=== PATIENT | male | born 1955 | race Caucasian/White ===

== ENCOUNTER 2016-09-04 06:27 | Day surgery (SDC) | payer OTHER ==
[~2016-09-04 06:27] MED LIST: ALBUTEROL1.25 MG/3 INH; AMIODARONE HCL100 M1 PO; BACLOFEN20 M1 PO; BROVANA15 MCG/22 INH; COUMADIN2.5 M1 PO; CPAP; CRANBERRY425 MG PO; FIBERCON625 M2 PO; KLOR-CON 1010 ME1 PO; METAMUCIL0.52 G1 PO; MIRALAX17 G2 PO; MUCINEX DM ER1 EAC1 PO; MULTIVITAMIN; ORAZINC220 M1 PO; OXYBUTYNIN CHLO10 M1 PO; SENNA LAXATIVE PO; SINGULAIR10 M1 PO; TOPROL XL50 M1 PO; ZYRTEC10 M7 PO
[2016-09-04 07:29] LABS: INR 1.2 INR (0.9-1.1); PROTHROMBIN TIME 13.7 SECONDS (9.0-13.6)
[2016-09-04 07:36] LABS: ANION GAP 11 mmol/L (0-20); BLOOD UREA NITROGEN 11 mg/dl (6-24); CALCIUM 8.9 mg/dl (8.5-10.5); CARBON DIOXIDE-VENOUS 25 mmol/L (22-32); CHLORIDE 98 mmol/l (96-110); CREATININE 0.41 mg/dl (0.60-1.30); GLUCOSE 101 mg/dL (70-110); SODIUM 130 mmol/L (135-145); eGFR VALUE FOR BLACK >90 mL/Min
[2016-09-04 07:38] LABS: POTASSIUM 4.3 mmol/L (3.7-5.1)
[2016-10-30] MEDS ORDERED: *CPAP (17:27)
[2016-10-30] MEDS ORDERED: SODIUM CHLOR1 GM/TAB PO (17:27)
[2016-10-30] MEDS ORDERED: SULFAMYLON60 GM TP (17:28)
[2016-10-30] MEDS ORDERED: FLONASE ALLERG9.9 ML (17:28)
[2016-10-30] MEDS ORDERED: MYRBETRIQ50 M1 PO (17:29)
[2016-10-30] MEDS ORDERED: VALIUM5 M1 PO (17:29)
[2016-10-30] MEDS ORDERED: PIPERACIL-TA3.375 G1 IV (17:30)
[2016-10-30] MEDS ORDERED: VANCOMYCIN HCL500 MG IV (17:31)
[2016-10-30] MEDS ORDERED: SALINE NASAL14.1 GM TP (17:32)
[2016-11-05] MEDS ORDERED: SULFAMYLON SOL250 M1 TP (14:09)
[2016-11-05] MEDS ORDERED: TYLENOL EXTRA500 M1 PO (14:14)
[2016-11-22] MEDS ORDERED: COUMADIN5 M2 PO (12:04)
== END 2016-09-04 11:25 ==
LOC: SHSB 06:27 → ENDOS 08:30
PROVIDERS: Anesthesiology
PROC: 0DBH8ZX Excision of Cecum, Via Natural or Artificial Opening Endoscopic, Diagnostic (ICD-10-PCS; principal; 2016-09-04)
PROC: 0DBP8ZX Excision of Rectum, Via Natural or Artificial Opening Endoscopic, Diagnostic (ICD-10-PCS; 2016-09-04)
DX: Z12.11 Encounter for screening for malignant neoplasm of colon (principal); D12.0 Benign neoplasm of cecum; K62.1 Rectal polyp; I10 Essential (primary) hypertension; J40 Bronchitis, not specified as acute or chronic; K21.9 Gastro-esophageal reflux disease without esophagitis; J30.2 Other seasonal allergic rhinitis; Z79.899 Other long term (current) drug therapy; Z88.2 Allergy status to sulfonamides; Z86.73 Personal history of transient ischemic attack (TIA), and cerebral infarction without residual deficits; Z80.0 Family history of malignant neoplasm of digestive organs; Z98.890 Other specified postprocedural states

== ENCOUNTER 2016-09-05 07:31 | Inpatient (IN) | payer OTHER ==
[2016-09-05 08:45] LABS: BASO % 0.3 % (0-2); EOS % 1.1 % (0-7); EOSINOPHIL ABSOLUTE COUNT 0.1 tho/cmm (0.0-0.7); HCT-HEMATOCRIT 36.5 % (36.0-53.5); HGB-HEMOGLOBIN 12.6 gm/dl (13.5-17.0); IMMATURE GRANULOCYTES ABSOLUTE 0.09 tho/cmm (0-0.03); LYMPH % 12.7 % (20-45); LYMPH ABSOLUTE COUNT 1.2 tho/cmm (0.8-4.5); MCH (MEAN CORPUSCULAR HGB) 28.4 pg (28.0-32.0); MCHC MEAN CORPUSCULAR HGB CONC 34.5 % (32.0-36.0); MCV (MEAN CELL VOLUME) 82.4 fl (82.0-96.0); MEAN PLATELET VOLUME 8.6 cmc (9.4-12.4); NEUTROPHIL ABSOLUTE COUNT 6.7 tho/cmm (1.6-8.0); NEUTROPHIL-AUTOMATED 6.7 tho/cmm (1.6-8.0); NEUTROPHILS % 73.9 % (40-80); PLATELET COUNT 288 tho/cmm (150-450); RED BLOOD COUNT 4.43 mil/cmm (4.40-5.70); RED CELL DISTRIBUTION WIDTH 15.6 % (12.4-16.4); WHITE BLOOD COUNT 9.1 tho/cmm (4.0-10.0)
[2016-09-05 08:46] LABS: ANION GAP 13 mmol/L (0-20); BLOOD UREA NITROGEN 8 mg/dl (6-24); CALCIUM 8.6 mg/dl (8.5-10.5); CARBON DIOXIDE-VENOUS 21 mmol/L (22-32); CHLORIDE 102 mmol/l (96-110); CREATININE 0.46 mg/dl (0.60-1.30); GLUCOSE 101 mg/dL (70-110); SODIUM 132 mmol/L (135-145); eGFR VALUE FOR BLACK >90 mL/Min
[2016-09-06 04:49] LABS: BASO % 0.2 % (0-2); EOS % 0.1 % (0-7); HCT-HEMATOCRIT 32.8 % (36.0-53.5); HGB-HEMOGLOBIN 11.2 gm/dl (13.5-17.0); IMMATURE GRANULOCYTES ABSOLUTE 0.06 tho/cmm (0-0.03); IMMATURE GRANULOCYTES PERCENT 0.4 % (0-0.3); LYMPH % 8.8 % (20-45); LYMPH ABSOLUTE COUNT 1.4 tho/cmm (0.8-4.5); MCH (MEAN CORPUSCULAR HGB) 28.6 pg (28.0-32.0); MCHC MEAN CORPUSCULAR HGB CONC 34.1 % (32.0-36.0); MCV (MEAN CELL VOLUME) 83.7 fl (82.0-96.0); MEAN PLATELET VOLUME 8.7 cmc (9.4-12.4); MONOCYTE ABSOLUTE COUNT 1.8 tho/cmm (0.0-1.2); NEUTROPHILS % 79.5 % (40-80); PLATELET COUNT 230 tho/cmm (150-450); RED BLOOD COUNT 3.92 mil/cmm (4.40-5.70); RED CELL DISTRIBUTION WIDTH 16.2 % (12.4-16.4)
[2016-09-06 04:58] LABS: ANION GAP 11 mmol/L (0-20); BLOOD UREA NITROGEN 4 mg/dl (6-24); CARBON DIOXIDE-VENOUS 25 mmol/L (22-32); CHLORIDE 102 mmol/l (96-110); CREATININE 0.46 mg/dl (0.60-1.30); GLUCOSE 142 mg/dL (70-110); POTASSIUM 3.5 mmol/L (3.7-5.1); SODIUM 134 mmol/L (135-145); WHITE BLOOD COUNT 16.4 tho/cmm (4.0-10.0); eGFR VALUE FOR BLACK >90 mL/Min
[2016-09-07 05:07] LABS: ANION GAP 11 mmol/L (0-20); BLOOD UREA NITROGEN 2 mg/dl (6-24); CALCIUM 8.3 mg/dl (8.5-10.5); CARBON DIOXIDE-VENOUS 26 mmol/L (22-32); CHLORIDE 101 mmol/l (96-110); CREATININE 0.41 mg/dl (0.60-1.30); GLUCOSE 127 mg/dL (70-110); POTASSIUM 4.1 mmol/L (3.7-5.1); SODIUM 134 mmol/L (135-145); eGFR VALUE FOR BLACK >90 mL/Min
[2016-09-07 05:12] LABS: BASO % 0.3 % (0-2); EOS % 1.1 % (0-7); EOSINOPHIL ABSOLUTE COUNT 0.1 tho/cmm (0.0-0.7); HCT-HEMATOCRIT 33.8 % (36.0-53.5); HGB-HEMOGLOBIN 11.5 gm/dl (13.5-17.0); IMMATURE GRANULOCYTES ABSOLUTE 0.03 tho/cmm (0-0.03); IMMATURE GRANULOCYTES PERCENT 0.3 % (0-0.3); LYMPH ABSOLUTE COUNT 1.4 tho/cmm (0.8-4.5); MCH (MEAN CORPUSCULAR HGB) 28.4 pg (28.0-32.0); MCV (MEAN CELL VOLUME) 83.5 fl (82.0-96.0); MEAN PLATELET VOLUME 8.8 cmc (9.4-12.4); MONO % 14.2 % (0-12); MONOCYTE ABSOLUTE COUNT 1.6 tho/cmm (0.0-1.2); NEUTROPHIL ABSOLUTE COUNT 7.8 tho/cmm (1.6-8.0); NEUTROPHIL-AUTOMATED 7.8 tho/cmm (1.6-8.0); NEUTROPHILS % 71.1 % (40-80); PLATELET COUNT 236 tho/cmm (150-450); RED BLOOD COUNT 4.05 mil/cmm (4.40-5.70)
[2016-09-08 06:12] LABS: BASO % 0.2 % (0-2); EOS % 5.3 % (0-7); EOSINOPHIL ABSOLUTE COUNT 0.4 tho/cmm (0.0-0.7); HCT-HEMATOCRIT 32.8 % (36.0-53.5); HGB-HEMOGLOBIN 11.1 gm/dl (13.5-17.0); IMMATURE GRANULOCYTES ABSOLUTE 0.02 tho/cmm (0-0.03); IMMATURE GRANULOCYTES PERCENT 0.2 % (0-0.3); LYMPH % 17.8 % (20-45); LYMPH ABSOLUTE COUNT 1.4 tho/cmm (0.8-4.5); MCHC MEAN CORPUSCULAR HGB CONC 33.8 % (32.0-36.0); MCV (MEAN CELL VOLUME) 82.8 fl (82.0-96.0); MEAN PLATELET VOLUME 8.5 cmc (9.4-12.4); MONO % 12.6 % (0-12); NEUTROPHIL ABSOLUTE COUNT 5.2 tho/cmm (1.6-8.0); NEUTROPHIL-AUTOMATED 5.2 tho/cmm (1.6-8.0); NEUTROPHILS % 63.9 % (40-80); PLATELET COUNT 215 tho/cmm (150-450); RED BLOOD COUNT 3.96 mil/cmm (4.40-5.70); RED CELL DISTRIBUTION WIDTH 15.6 % (12.4-16.4); WHITE BLOOD COUNT 8.1 tho/cmm (4.0-10.0)
[2016-09-08 06:18] LABS: ANION GAP 11 mmol/L (0-20); BLOOD UREA NITROGEN 3 mg/dl (6-24); CALCIUM 8.5 mg/dl (8.5-10.5); CARBON DIOXIDE-VENOUS 24 mmol/L (22-32); CHLORIDE 99 mmol/l (96-110); CREATININE 0.32 mg/dl (0.60-1.30); GLUCOSE 107 mg/dL (70-110); POTASSIUM 4.3 mmol/L (3.7-5.1); SODIUM 130 mmol/L (135-145); eGFR VALUE FOR BLACK >90 mL/Min
[2016-09-09 04:31] LABS: BASO % 0.5 % (0-2); EOS % 8.4 % (0-7); EOSINOPHIL ABSOLUTE COUNT 0.7 tho/cmm (0.0-0.7); HCT-HEMATOCRIT 31.4 % (36.0-53.5); HGB-HEMOGLOBIN 10.6 gm/dl (13.5-17.0); IMMATURE GRANULOCYTES ABSOLUTE 0.04 tho/cmm (0-0.03); IMMATURE GRANULOCYTES PERCENT 0.5 % (0-0.3); LYMPH % 14.9 % (20-45); LYMPH ABSOLUTE COUNT 1.3 tho/cmm (0.8-4.5); MCH (MEAN CORPUSCULAR HGB) 28.1 pg (28.0-32.0); MCHC MEAN CORPUSCULAR HGB CONC 33.8 % (32.0-36.0); MCV (MEAN CELL VOLUME) 83.3 fl (82.0-96.0); MEAN PLATELET VOLUME 9.1 cmc (9.4-12.4); MONO % 12.8 % (0-12); MONOCYTE ABSOLUTE COUNT 1.1 tho/cmm (0.0-1.2); NEUTROPHIL ABSOLUTE COUNT 5.4 tho/cmm (1.6-8.0); NEUTROPHIL-AUTOMATED 5.4 tho/cmm (1.6-8.0); NEUTROPHILS % 62.9 % (40-80); PLATELET COUNT 237 tho/cmm (150-450); RED BLOOD COUNT 3.77 mil/cmm (4.40-5.70); RED CELL DISTRIBUTION WIDTH 15.8 % (12.4-16.4); WHITE BLOOD COUNT 8.6 tho/cmm (4.0-10.0)
[2016-09-09 04:43] LABS: ANION GAP 10 mmol/L (0-20); BLOOD UREA NITROGEN 6 mg/dl (6-24); CALCIUM 8.3 mg/dl (8.5-10.5); CARBON DIOXIDE-VENOUS 25 mmol/L (22-32); CHLORIDE 97 mmol/l (96-110); CREATININE 0.38 mg/dl (0.60-1.30); GLUCOSE 87 mg/dL (70-110); POTASSIUM 4.4 mmol/L (3.7-5.1); SODIUM 128 mmol/L (135-145); eGFR VALUE FOR BLACK >90 mL/Min
[2016-09-09 08:25] LABS: ALBUMIN 2.4 g/dl (3.5-5.0); PREALBUMIN 12.6 mg/dl (20.0-40.0)
[2016-09-10 04:15] LABS: BASO % 0.2 % (0-2); EOSINOPHIL ABSOLUTE COUNT 0.1 tho/cmm (0.0-0.7); HCT-HEMATOCRIT 29.3 % (36.0-53.5); HGB-HEMOGLOBIN 10.1 gm/dl (13.5-17.0); IMMATURE GRANULOCYTES ABSOLUTE 0.05 tho/cmm (0-0.03); IMMATURE GRANULOCYTES PERCENT 0.4 % (0-0.3); LYMPH % 8.5 % (20-45); LYMPH ABSOLUTE COUNT 1.1 tho/cmm (0.8-4.5); MCH (MEAN CORPUSCULAR HGB) 28.5 pg (28.0-32.0); MCHC MEAN CORPUSCULAR HGB CONC 34.5 % (32.0-36.0); MCV (MEAN CELL VOLUME) 82.5 fl (82.0-96.0); MEAN PLATELET VOLUME 8.7 cmc (9.4-12.4); MONO % 14.6 % (0-12); MONOCYTE ABSOLUTE COUNT 1.8 tho/cmm (0.0-1.2); NEUTROPHIL ABSOLUTE COUNT 9.3 tho/cmm (1.6-8.0); NEUTROPHIL-AUTOMATED 9.3 tho/cmm (1.6-8.0); NEUTROPHILS % 75.3 % (40-80); PLATELET COUNT 262 tho/cmm (150-450); RED BLOOD COUNT 3.55 mil/cmm (4.40-5.70); RED CELL DISTRIBUTION WIDTH 15.5 % (12.4-16.4); WHITE BLOOD COUNT 12.4 tho/cmm (4.0-10.0)
[2016-09-10 04:26] LABS: ANION GAP 14 mmol/L (0-20); BLOOD UREA NITROGEN 8 mg/dl (6-24); CALCIUM 8.1 mg/dl (8.5-10.5); CARBON DIOXIDE-VENOUS 22 mmol/L (22-32); CHLORIDE 101 mmol/l (96-110); CREATININE 0.48 mg/dl (0.60-1.30); GLUCOSE 96 mg/dL (70-110); SODIUM 133 mmol/L (135-145); eGFR VALUE FOR BLACK >90 mL/Min
[2016-09-10 04:28] LABS: POTASSIUM 4.2 mmol/L (3.7-5.1)
[2016-09-11 04:59] LABS: BASO % 0.1 % (0-2); EOS % 1.5 % (0-7); EOSINOPHIL ABSOLUTE COUNT 0.2 tho/cmm (0.0-0.7); HCT-HEMATOCRIT 26.4 % (36.0-53.5); HGB-HEMOGLOBIN 9.1 gm/dl (13.5-17.0); IMMATURE GRANULOCYTES ABSOLUTE 0.07 tho/cmm (0-0.03); IMMATURE GRANULOCYTES PERCENT 0.5 % (0-0.3); LYMPH % 8.9 % (20-45); LYMPH ABSOLUTE COUNT 1.4 tho/cmm (0.8-4.5); MCH (MEAN CORPUSCULAR HGB) 28.4 pg (28.0-32.0); MCHC MEAN CORPUSCULAR HGB CONC 34.5 % (32.0-36.0); MCV (MEAN CELL VOLUME) 82.5 fl (82.0-96.0); MEAN PLATELET VOLUME 8.7 cmc (9.4-12.4); MONO % 14.9 % (0-12); MONOCYTE ABSOLUTE COUNT 2.3 tho/cmm (0.0-1.2); NEUTROPHIL ABSOLUTE COUNT 11.5 tho/cmm (1.6-8.0); NEUTROPHIL-AUTOMATED 11.5 tho/cmm (1.6-8.0); NEUTROPHILS % 74.1 % (40-80); PLATELET COUNT 246 tho/cmm (150-450); RED CELL DISTRIBUTION WIDTH 15.6 % (12.4-16.4); WHITE BLOOD COUNT 15.5 tho/cmm (4.0-10.0)
[2016-09-11 05:33] LABS: ANION GAP 13 mmol/L (0-20); BLOOD UREA NITROGEN 6 mg/dl (6-24); CALCIUM 7.8 mg/dl (8.5-10.5); CARBON DIOXIDE-VENOUS 23 mmol/L (22-32); CHLORIDE 95 mmol/l (96-110); CREATININE 0.35 mg/dl (0.60-1.30); GLUCOSE 106 mg/dL (70-110); POTASSIUM 3.8 mmol/L (3.7-5.1); SODIUM 127 mmol/L (135-145); eGFR VALUE FOR BLACK >90 mL/Min
[2016-09-12 07:05] LABS: BASO % 0.2 % (0-2); EOS % 2.4 % (0-7); EOSINOPHIL ABSOLUTE COUNT 0.3 tho/cmm (0.0-0.7); HCT-HEMATOCRIT 25.6 % (36.0-53.5); HGB-HEMOGLOBIN 8.7 gm/dl (13.5-17.0); IMMATURE GRANULOCYTES ABSOLUTE 0.08 tho/cmm (0-0.03); IMMATURE GRANULOCYTES PERCENT 0.6 % (0-0.3); LYMPH % 10.2 % (20-45); LYMPH ABSOLUTE COUNT 1.3 tho/cmm (0.8-4.5); MCH (MEAN CORPUSCULAR HGB) 28.2 pg (28.0-32.0); MCV (MEAN CELL VOLUME) 83.1 fl (82.0-96.0); MEAN PLATELET VOLUME 8.5 cmc (9.4-12.4); MONO % 13.7 % (0-12); MONOCYTE ABSOLUTE COUNT 1.7 tho/cmm (0.0-1.2); NEUTROPHILS % 72.9 % (40-80); PLATELET COUNT 247 tho/cmm (150-450); RED BLOOD COUNT 3.08 mil/cmm (4.40-5.70); RED CELL DISTRIBUTION WIDTH 15.6 % (12.4-16.4); WHITE BLOOD COUNT 12.4 tho/cmm (4.0-10.0)
[2016-09-12 07:14] LABS: ANION GAP 13 mmol/L (0-20); BLOOD UREA NITROGEN 8 mg/dl (6-24); CALCIUM 8.2 mg/dl (8.5-10.5); CARBON DIOXIDE-VENOUS 27 mmol/L (22-32); CHLORIDE 96 mmol/l (96-110); CREATININE 0.36 mg/dl (0.60-1.30); GLUCOSE 106 mg/dL (70-110); POTASSIUM 3.8 mmol/L (3.7-5.1); SODIUM 132 mmol/L (135-145); eGFR VALUE FOR BLACK >90 mL/Min
[2016-09-16 04:55] LABS: BASO % 0.4 % (0-2); EOS % 4.3 % (0-7); EOSINOPHIL ABSOLUTE COUNT 0.4 tho/cmm (0.0-0.7); HGB-HEMOGLOBIN 9.1 gm/dl (13.5-17.0); IMMATURE GRANULOCYTES ABSOLUTE 0.18 tho/cmm (0-0.03); IMMATURE GRANULOCYTES PERCENT 1.8 % (0-0.3); LYMPH ABSOLUTE COUNT 1.4 tho/cmm (0.8-4.5); MCH (MEAN CORPUSCULAR HGB) 27.8 pg (28.0-32.0); MCHC MEAN CORPUSCULAR HGB CONC 33.7 % (32.0-36.0); MCV (MEAN CELL VOLUME) 82.6 fl (82.0-96.0); MEAN PLATELET VOLUME 8.3 cmc (9.4-12.4); MONO % 14.4 % (0-12); MONOCYTE ABSOLUTE COUNT 1.5 tho/cmm (0.0-1.2); NEUTROPHIL ABSOLUTE COUNT 6.6 tho/cmm (1.6-8.0); NEUTROPHIL-AUTOMATED 6.6 tho/cmm (1.6-8.0); NEUTROPHILS % 65.1 % (40-80); PLATELET COUNT 362 tho/cmm (150-450); RED BLOOD COUNT 3.27 mil/cmm (4.40-5.70); RED CELL DISTRIBUTION WIDTH 15.6 % (12.4-16.4); WHITE BLOOD COUNT 10.2 tho/cmm (4.0-10.0)
[2016-09-16 05:08] LABS: ALBUMIN 3.5 g/dl (3.5-5.0); ALKALINE PHOSPHATASE 58 U/L (33-138); ALT/SGPT 25 U/L (12-78); ANION GAP 14 mmol/L (0-20); AST/SGOT 11 U/L (10-40); BILIRUBIN,TOTAL 0.5 mg/dl (0.0-1.5); BLOOD UREA NITROGEN 6 mg/dl (6-24); CALCIUM 8.8 mg/dl (8.5-10.5); CARBON DIOXIDE-VENOUS 25 mmol/L (22-32); CHLORIDE 98 mmol/l (96-110); CREATININE 0.34 mg/dl (0.60-1.30); GLUCOSE 99 mg/dL (70-110); SODIUM 133 mmol/L (135-145); eGFR VALUE FOR BLACK >90 mL/Min
[2016-10-30] MEDS ORDERED: SODIUM CHLOR1 GM/TAB PO (17:27)
[2016-10-30] MEDS ORDERED: *CPAP (17:27)
[2016-10-30] MEDS ORDERED: FLONASE ALLERG9.9 ML (17:28)
[2016-10-30] MEDS ORDERED: SULFAMYLON60 GM TP (17:28)
[2016-10-30] MEDS ORDERED: MYRBETRIQ50 M1 PO (17:29)
[2016-10-30] MEDS ORDERED: VALIUM5 M1 PO (17:29)
[2016-10-30] MEDS ORDERED: PIPERACIL-TA3.375 G1 IV (17:30)
[2016-10-30] MEDS ORDERED: VANCOMYCIN HCL500 MG IV (17:31)
[2016-10-30] MEDS ORDERED: SALINE NASAL14.1 GM TP (17:32)
[2016-11-05] MEDS ORDERED: SULFAMYLON SOL250 M1 TP (14:09)
[2016-11-05] MEDS ORDERED: TYLENOL EXTRA500 M1 PO (14:14)
[2016-11-22] MEDS ORDERED: COUMADIN5 M2 PO (12:04)
== END 2016-09-17 14:40 | DRG 329 ==
LOC: SHSC 07:31 → ORW 12:05 → BURN 13:58
PROVIDERS: Anesthesiology; Surgery; ADMIT Surgery
PROC: 0D1N4Z4 Bypass Sigmoid Colon to Cutaneous, Percutaneous Endoscopic Approach (ICD-10-PCS; 2016-09-05)
PROC: 0DBN4ZZ Excision of Sigmoid Colon, Percutaneous Endoscopic Approach (ICD-10-PCS; 2016-09-05)
PROC: 0DSP4ZZ Reposition Rectum, Percutaneous Endoscopic Approach (ICD-10-PCS; 2016-09-05)
PROC: 05H633Z Insertion of Infusion Device into Left Subclavian Vein, Percutaneous Approach (ICD-10-PCS; 2016-09-05)
PROC: 0QB10ZZ Excision of Sacrum, Open Approach (ICD-10-PCS; principal; 2016-09-10)
PROC: 06BY3ZC Excision of Hemorrhoidal Plexus, Percutaneous Approach (ICD-10-PCS; 2016-09-10)
PROC: 0JX90ZC Transfer Buttock Subcutaneous Tissue and Fascia with Skin, Subcutaneous Tissue and Fascia, Open Approach (ICD-10-PCS; 2016-09-10)
PROC: 0B978ZX Drainage of Left Main Bronchus, Via Natural or Artificial Opening Endoscopic, Diagnostic (ICD-10-PCS; 2016-09-10)
PROC: 0B938ZX Drainage of Right Main Bronchus, Via Natural or Artificial Opening Endoscopic, Diagnostic (ICD-10-PCS; 2016-09-10)
DX: R15.9 Full incontinence of feces (principal); G82.50 Quadriplegia, unspecified; L89.154 Pressure ulcer of sacral region, stage 4; Z99.81 Dependence on supplemental oxygen; E44.1 Mild protein-calorie malnutrition; E87.1 Hypo-osmolality and hyponatremia; K62.3 Rectal prolapse; D64.9 Anemia, unspecified; K64.8 Other hemorrhoids; I10 Essential (primary) hypertension; G90.4 Autonomic dysreflexia; K21.9 Gastro-esophageal reflux disease without esophagitis; G47.33 Obstructive sleep apnea (adult) (pediatric); N31.9 Neuromuscular dysfunction of bladder, unspecified; Z86.718 Personal history of other venous thrombosis and embolism; Z68.23 Body mass index [BMI] 23.0-23.9, adult; Z87.891 Personal history of nicotine dependence
CPT/HCPCS: C9113; G0009; J0171; J0360; J1335; J1650; J2250; J3260; J3370; J3480; J7030; J7040; J7121; J7999; P9045

== ENCOUNTER 2016-09-20 13:31 | Inpatient (IN) | payer OTHER, MEDICARE, BC ==
[2016-09-20] MEDS ORDERED: BACITRACIN28.4 G2 TP (13:40)
[2016-09-20] MEDS ORDERED: MAGIC MOUTHWASH SSP (13:41)
[2016-09-20] MEDS ORDERED: ISOPTO TEARS15 M1 OP (13:42)
[2016-09-20] MEDS ORDERED: ALBUTEROL2.5 MG/3 M INH (13:43)
[2016-09-20] MEDS ORDERED: LOVENOX100 MG/1 M SC (13:44)
[2016-09-20] MEDS ORDERED: PANTOPRAZOLE SO40 M3 PO (13:44)
[2016-09-20] MEDS ORDERED: BROVANA15 MCG/22 INH (13:45)
[2016-09-20] MEDS ORDERED: AUGMENTIN 875-1 EAC2 PO (13:45)
[2016-09-20] MEDS ORDERED: BACLOFEN20 M1 PO (13:45)
[2016-09-20] MEDS ORDERED: CLARITIN10 M6 PO (13:45)
[2016-09-20] MEDS ORDERED: IBUPROFEN400 M1 PO (13:47)
[2016-09-20] MEDS ORDERED: TOPROL XL50 M1 PO (13:47)
[2016-09-20] MEDS ORDERED: AMIODARONE HCL100 M1 PO (13:47)
[2016-09-20] MEDS ORDERED: HYDROCODON-ACE1 EA16 PO (13:48)
[2016-09-20] MEDS ORDERED: POTASSIUM CHLO10 ME2 PO (13:48)
[2016-09-20] MEDS ORDERED: MUCINEX DM ER1 EAC1 PO (13:49)
[2016-09-20] MEDS ORDERED: SINGULAIR10 M1 PO (13:49)
[2016-09-20] MEDS ORDERED: ZINC SULFATE220 M2 PO (13:49)
[2016-09-20] MEDS ORDERED: MIRALAX17 G2 PO (13:50)
[2016-09-20] MEDS ORDERED: FIBER-LAX625 M1 PO (13:50)
[2016-09-20] MEDS ORDERED: METAMUCIL0.52 G1 PO (13:51)
[2016-09-20] MEDS ORDERED: SENNA8.6 M2 PO (13:51)
[2016-09-20] MEDS ORDERED: THERA M PLUS TA1 TAB PO (13:52)
[2016-09-20] MEDS ORDERED: CRANBERRY200 M1 PO (13:52)
[2016-09-20] MEDS ORDERED: DITROPAN XL10 M3 PO (13:52)
[2016-09-20 15:35] LABS: HCT-HEMATOCRIT 29.7 % (36.0-53.5); HGB-HEMOGLOBIN 10.1 gm/dl (13.5-17.0); MCH (MEAN CORPUSCULAR HGB) 27.9 pg (28.0-32.0); MEAN PLATELET VOLUME 8.1 cmc (9.4-12.4); NEUTROPHIL-AUTOMATED 12.1 tho/cmm (1.6-8.0); PLATELET COUNT 440 tho/cmm (150-450); RED BLOOD COUNT 3.62 mil/cmm (4.40-5.70); RED CELL DISTRIBUTION WIDTH 15.8 % (12.4-16.4); WHITE BLOOD COUNT 17.4 tho/cmm (4.0-10.0)
[2016-09-20 15:48] LABS: ANION GAP 15 mmol/L (0-20); BLOOD UREA NITROGEN 28 mg/dl (6-24); CALCIUM 9.4 mg/dl (8.5-10.5); CARBON DIOXIDE-VENOUS 24 mmol/L (22-32); CHLORIDE 97 mmol/l (96-110); CREATININE 0.76 mg/dl (0.60-1.30); GLUCOSE 110 mg/dL (70-110); POTASSIUM 4.5 mmol/L (3.7-5.1); SODIUM 131 mmol/L (135-145); eGFR VALUE FOR BLACK >90 mL/Min
[2016-09-20 16:02] LABS: BAND % 4 % (0-20); BAND ABSOLUTE COUNT 0.7 tho/cmm (0-2.0); EOSINOPHIL % 3 % (0-7)
[2016-09-21 05:45] LABS: BASO % 0.3 % (0-2); EOS % 0.3 % (0-7); HCT-HEMATOCRIT 25.1 % (36.0-53.5); HGB-HEMOGLOBIN 8.6 gm/dl (13.5-17.0); IMMATURE GRANULOCYTES ABSOLUTE 0.62 tho/cmm (0-0.03); LYMPH % 8.5 % (20-45); LYMPH ABSOLUTE COUNT 1.3 tho/cmm (0.8-4.5); MCHC MEAN CORPUSCULAR HGB CONC 34.3 % (32.0-36.0); MCV (MEAN CELL VOLUME) 81.8 fl (82.0-96.0); MEAN PLATELET VOLUME 8.3 cmc (9.4-12.4); MONO % 3.5 % (0-12); MONOCYTE ABSOLUTE COUNT 0.5 tho/cmm (0.0-1.2); NEUTROPHIL ABSOLUTE COUNT 12.9 tho/cmm (1.6-8.0); NEUTROPHIL-AUTOMATED 12.9 tho/cmm (1.6-8.0); NEUTROPHILS % 83.4 % (40-80); PLATELET COUNT 386 tho/cmm (150-450); RED BLOOD COUNT 3.07 mil/cmm (4.40-5.70); WHITE BLOOD COUNT 15.5 tho/cmm (4.0-10.0)
[2016-10-30] MEDS ORDERED: SODIUM CHLOR1 GM/TAB PO (17:27)
[2016-10-30] MEDS ORDERED: *CPAP (17:27)
[2016-10-30] MEDS ORDERED: FLONASE ALLERG9.9 ML (17:28)
[2016-10-30] MEDS ORDERED: SULFAMYLON60 GM TP (17:28)
[2016-10-30] MEDS ORDERED: VALIUM5 M1 PO (17:29)
[2016-10-30] MEDS ORDERED: MYRBETRIQ50 M1 PO (17:29)
[2016-10-30] MEDS ORDERED: PIPERACIL-TA3.375 G1 IV (17:30)
[2016-10-30] MEDS ORDERED: VANCOMYCIN HCL500 MG IV (17:31)
[2016-10-30] MEDS ORDERED: SALINE NASAL14.1 GM TP (17:32)
[2016-11-05] MEDS ORDERED: SULFAMYLON SOL250 M1 TP (14:09)
[2016-11-05] MEDS ORDERED: TYLENOL EXTRA500 M1 PO (14:14)
[2016-11-22] MEDS ORDERED: COUMADIN5 M2 PO (12:04)
== END 2016-09-21 14:50 | DRG 901 ==
LOC: EDMED 13:31 → EMR2 14:31 → BURN 14:41
PROVIDERS: ADMIT Surgery
PROC: 0HB7XZZ Excision of Abdomen Skin, External Approach (ICD-10-PCS; principal; 2016-09-20)
PROC: 0W3P8ZZ Control Bleeding in Gastrointestinal Tract, Via Natural or Artificial Opening Endoscopic (ICD-10-PCS; principal; 2016-09-20)
DX: K91.840 Postprocedural hemorrhage of a digestive system organ or structure following a digestive system procedure (principal); G82.50 Quadriplegia, unspecified; T81.31XA Disruption of external operation (surgical) wound, not elsewhere classified, initial encounter; I48.91 Unspecified atrial fibrillation; K21.9 Gastro-esophageal reflux disease without esophagitis; G47.33 Obstructive sleep apnea (adult) (pediatric); I10 Essential (primary) hypertension; Z93.6 Other artificial openings of urinary tract status; Z88.2 Allergy status to sulfonamides; Z93.3 Colostomy status; Y83.8 Other surgical procedures as the cause of abnormal reaction of the patient, or of later complication, without mention of misadventure at the time of the procedure; Z79.01 Long term (current) use of anticoagulants; Z79.899 Other long term (current) drug therapy